=== PATIENT | female | born 2000 | race Caucasian/White ===

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

== ENCOUNTER 2019-02-09 12:10 | Outpatient (CLI) | payer OTHER | END 2019-02-09 23:59 | disposition home or self-care (01) | LOC: CFH 12:10 | PROVIDERS: ATTEND Physician Assistant Surgical | DX: K76.0 Fatty (change of) liver, not elsewhere classified (principal); M46.1 Sacroiliitis, not elsewhere classified; R31.0 Gross hematuria | CPT/HCPCS: 74178; Q9967 ==